=== PATIENT | female | born 1950 | race Caucasian/White ===

== ENCOUNTER 2024-03-05 10:42 | Day surgery (SDC) | payer MEDICARE ==
[2024-03-05] MEDS ORDERED: Depo-Medrol 40 MG/ML IM ONE (10:43)
[2024-03-05] MEDS ORDERED: Xylocaine-Mpf 2% 5 Ml Vial IJ ONE (10:43)
[2024-03-05] MEDS ORDERED: DIPRIVAN 200 MG/20 ML IV ONE (13:10)
[2024-03-05] MEDS ORDERED: Lactated Ringers 1,000 ML IV ONE (13:14)
--- NOTE | 2024-03-05 14:11 | XRAY ---
Indication: Bilateral L4-S1 MBB. Intraoperative fluoroscopy provided for 14 seconds. Single digital spot image submitted for interpretation demonstrates posterior needle tips projecting over the expected left and right L4-S1 nerve roots. Correlate with intraoperative findings/report.
--- NOTE | 2024-03-05 20:09 | XRAY ---
14 seconds of fluoroscopy was used in surgery for a bilateral L4-S1 MBB.
== END 2024-03-05 13:50 ==
LOC: SDC-PAIN 10:42
PROVIDERS: ATTEND Psychiatry & Neurology Pain Medicine
DX: M47.816 Spondylosis without myelopathy or radiculopathy, lumbar region (principal)
CPT/HCPCS: 64493; 64494; 72020; 77002; J2704

== ENCOUNTER 2024-04-09 11:03 | Day surgery (SDC) | payer MEDICARE ==
[2024-04-09] MEDS ORDERED: Depo-Medrol 40 MG/ML IM ONE (11:04)
[2024-04-09] MEDS ORDERED: BUPIVACAINE 0.5% VIAL IJ ONE (11:04)
[2024-04-09] MEDS ORDERED: Lactated Ringers 1,000 ML IV ONE (12:43)
[2024-04-09] MEDS ORDERED: DIPRIVAN 200 MG/20 ML IV ONE (12:59)
[2024-04-09] MEDS ORDERED: Xylocaine-Mpf 2% 5 Ml Vial ONE (13:00)
--- NOTE | 2024-04-09 14:06 | XRAY ---
Indication: Bilateral L4-S1 MBB. Intraoperative fluoroscopy provided for 19 seconds. Single digital spot image submitted for interpretation demonstrates posterior needle tips projecting over the expected left and right L4-S1 nerve roots. Correlate with intraoperative findings/report.
--- NOTE | 2024-04-09 14:40 | XRAY ---
19 seconds of fluoroscopy was used in surgery for a bilateral L4-S1 MBB.
== END 2024-04-09 13:25 | disposition home or self-care (01) ==
LOC: SDC-PAIN 11:03
PROVIDERS: ATTEND Psychiatry & Neurology Pain Medicine
DX: M47.816 Spondylosis without myelopathy or radiculopathy, lumbar region (principal)
CPT/HCPCS: 64493; 64494; 72020; 77002; J2704

== ENCOUNTER 2024-05-14 10:34 | Day surgery (SDC) | payer MEDICARE ==
[2024-05-14] MEDS ORDERED: Depo-Medrol 40 MG/ML IM ONE (10:35)
[2024-05-14] MEDS ORDERED: LIDOCAINE HCL 1% AMPUL 5 ML IJ ONE (10:35)
[2024-05-14] MEDS ORDERED: BUPIVACAINE 0.5% VIAL IJ ONE (10:35)
[2024-05-14] MEDS ORDERED: DIPRIVAN 200 MG/20 ML IV ONE (12:17)
--- NOTE | 2024-05-14 14:19 | XRAY ---
Indication: Left L4-S1 RFA. Intraoperative fluoroscopy provided for 22 seconds. 4 digital spot images submitted for interpretation demonstrates posterior needle tips projecting over the expected left L4-S1 nerve roots. Correlate with intraoperative findings/report.
--- NOTE | 2024-05-14 14:25 | XRAY ---
22 seconds of fluoroscopy was used in surgery for a left L4-S1 RFA.
== END 2024-05-14 12:35 | disposition home or self-care (01) ==
LOC: SDC-PAIN 10:34
PROVIDERS: ATTEND Psychiatry & Neurology Pain Medicine
DX: M47.817 Spondylosis without myelopathy or radiculopathy, lumbosacral region (principal)
CPT/HCPCS: 64635; 64636; 72100; 77002; 99100; J2704

== ENCOUNTER 2024-05-15 10:28 | Day surgery (SDC) | payer MEDICARE ==
[2024-05-15] MEDS ORDERED: BUPIVACAINE 0.5% VIAL IJ ONE (10:29)
[2024-05-15] MEDS ORDERED: LIDOCAINE HCL 1% AMPUL 5 ML IJ ONE (10:29)
[2024-05-15] MEDS ORDERED: Depo-Medrol 40 MG/ML IM ONE (10:29)
[2024-05-15] MEDS ORDERED: DIPRIVAN 200 MG/20 ML IV ONE (11:30)
--- NOTE | 2024-05-15 12:58 | XRAY ---
Indication: Right L4-S1 RFA. Intraoperative fluoroscopy provided for 20 seconds. 7 digital spot image submitted for interpretation demonstrates posterior needle tips projecting over the expected right L4-S1 nerve roots. Correlate with intraoperative findings/report.
--- NOTE | 2024-05-15 13:05 | XRAY ---
20 seconds of fluoroscopy was used in surgery for a right L4-S1 RFA.
== END 2024-05-15 12:05 | disposition home or self-care (01) ==
LOC: SDC-PAIN 10:28
PROVIDERS: ATTEND Psychiatry & Neurology Pain Medicine
DX: M47.816 Spondylosis without myelopathy or radiculopathy, lumbar region (principal)
CPT/HCPCS: 64635; 64636; 72100; 77002; 99100; J2704